=== PATIENT | male | born 1980 | race Hispanic/Latino ===

== ENCOUNTER → 2022-01-22 | Outpatient (CLI) | payer BC ==
[~2022-01-22] MED LIST: IOHEXOL 350 MG/ML 100ML INFUS..BTL IV ONE
== END | disposition home or self-care (01) ==
LOC: RAH 10:34
PROVIDERS: ATTEND Family Medicine
DX: R10.32 Left lower quadrant pain (principal); R63.4 Abnormal weight loss
CPT/HCPCS: 74177; Q9967